=== PATIENT | male | born 1960 | race Caucasian/White ===

== ENCOUNTER 2016-08-22 03:24 | Emergency (ER) | payer SELFPAY ==
[~2016-08-22] VITALS: Ht 182.9 cm; Wt 64.0 kg
[2016-08-22 07:50] VITALS: BP 146/90
== END 2016-08-22 08:00 | disposition home or self-care (01) ==
LOC: ER 03:33
DX: Z00.00 Encounter for general adult medical examination without abnormal findings (principal); R53.1 Weakness; Z59.0 Homelessness; Z88.0 Allergy status to penicillin
CPT/HCPCS: 99283; A4217; Z7610

== ENCOUNTER 2016-12-30 15:16 | Emergency (ER) | payer SELFPAY ==
[~2016-12-30] VITALS: Ht 180.3 cm; Wt 68.0 kg
[2016-12-30 15:18] VITALS: BP 110/68
== END 2016-12-30 16:16 | disposition left against medical advice (07) ==
LOC: ER 15:20
DX: M79.605 Pain in left leg (principal); Z53.21 Procedure and treatment not carried out due to patient leaving prior to being seen by health care provider